=== PATIENT | male | born 1975 | race Caucasian/White ===

== ENCOUNTER 2018-07-24 18:51 | Emergency (ER) | payer SELFPAY ==
[~2018-07-24] VITALS: Ht 190.5 cm; Wt 108.9 kg
[~2018-07-24 18:51] MED LIST: BENZ100C PO; OXYM15MI4 NS; VENTOLIN HFA18 GM INH
[2018-07-24] MEDS ORDERED: MORPHINE SULFATE 10 MG/ML VIAL. IM ONE (19:30)
[2018-07-24] MEDS ORDERED: diazePAM 5 MG TABLET PO ONE (19:30)
[2018-07-24 20:00] VITALS: BP 145/85
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
[2018-07-24] MEDS ORDERED: HYDR-971 PO (20:02)
[2018-07-24] MEDS ORDERED: DIAZ5TAB PO (20:02)
[2018-07-24] MEDS ORDERED: IBUP-1060 PO (20:02)
== END 2018-07-24 20:21 | disposition home or self-care (01) ==
LOC: ER 18:51
DX: G89.29 Other chronic pain (principal); M54.5 Low back pain; K21.9 Gastro-esophageal reflux disease without esophagitis; I10 Essential (primary) hypertension
CPT/HCPCS: 96372; 99283; J2270

== ENCOUNTER 2018-11-20 16:25 | Emergency (ER) | payer SELFPAY ==
[~2018-11-20] VITALS: Ht 190.5 cm; Wt 108.9 kg
[~2018-11-20 16:25] MED LIST changes: +DIAZ5TAB PO; +HYDR-3164 PO; +IBUP-1060 PO
[2018-11-20 16:45] VITALS: BP 161/88
[2018-11-20] MEDS ORDERED: IV NORMAL SALINE 1000ML BAG 1,000 ML IV ONE (17:00)
[2018-11-20] MEDS ORDERED: predniSONE 10 MG TABLET PO ONE (17:00)
--- NOTE | 2018-11-20 17:06 | PHYS DOC ---
Past Medical History Past Medical History: No Pertinent History, Bronchitis, GERD Past Surgical History: No Surgical History Alcohol Use: None Drug Use: None Adult General Chief Complaint Chief Complaint: DIZZY/LIGHT HEADED HPI HPI 43-year-old male presents to ER via POV for complaints of 2 episodes where he "blacked out" while lying on the couch and during a coughing episode. Patient reports he woke up on the couch denies falling and striking his head or having any head, neck, or back pain. Patient denies incontinence of bowel or bladder. Patient reports for the past month he has had cold-like symptoms with sinus congestion and drainage, low-grade fever, wheezing, and productive cough. Patient reports he has had generalized fatigue denies any chest pain or shortness of air. Patient reports he has had decreased appetite denies any nausea or vomiting. Patient reports he has had no urinary symptoms and has had regular bowel movements. Reports daughter has had recent pneumonia diagnosis and at bedside has cough as well. Patient is a daily smoker. Patient denies any recent travel. Orthostatic vital signs obtained by this provider during initial exam: Supine blood pressure 162/87 heart rate 73 Sitting blood pressure 154/92 heart rate 90 Standing blood pressure 139/87 heart rate 89 Review of Systems Review of Systems Constitutional: Reports generalized fatigue with low grade temp. Eyes: Denies change in visual acuity, redness, or eye pain [] HENT: Denies sore throat. Reports sinus congestion and drainage Respiratory: Denies shortness of breath. Reports productive cough and wheezing Cardiovascular: Denies chest pain or palpitations GI: Denies abdominal pain, nausea, vomiting, bloody stools or diarrhea [] : Denies dysuria or hematuria [] Musculoskeletal: Denies back/neck pain or joint pain [] Integument: Denies rash, swelling or skin lesions [] Neurologic: Denies headache, focal weakness or sensory changes. Reports 2 episodes of "blacking out" All other systems were reviewed and found to be within normal limits, except as documented in this note. Current Medications Current Medications Current Medications Medications (Trade) Dose Ordered Sig/Coco Start Time Stop Time Status Last Admin Dose Admin Albuterol/ Ipratropium (Duoneb) 3 ml 1X ONCE 11/20/18 18:45 11/20/18 18:46 DC 11/20/18 18:45 3 ML Prednisone (Prednisone) 50 mg 1X ONCE 11/20/18 17:00 18 17:01 DC 11/20/18 17:25 50 MG Sodium Chloride 1,000 ml @ 1,000 mls/hr 1X ONCE 11/20/18 17:00 18 17:59 DC 11/20/18 17:25 1,000 MLS/HR Allergies Allergies Allergies Coded Allergies Type Severity Reaction Last Updated Verified No Known Drug Allergies 06/21/16 No Physical Exam Physical Exam Constitutional: Well developed, well nourished, no acute distress, non-toxic appearance. There speech HENT: Normocephalic, atraumatic, bilateral ears normal, oropharynx moist- no pharyngeal swelling or erythema, no oral exudates, nose normal. [] Eyes: 3mm PERRLA, EOMI- no pain with eye movement, no nystagmus, conjunctiva normal, no discharge. [] Neck: Normal range of motion, no tenderness, supple, no stridor. [] Cardiovascular: Heart rate regular rhythm, no murmur [] Lungs & Thorax: Diminished lung sounds throughout all lung chang. Slight expiratory wheezing right upper lobe. Less air movement in bases. Respirations equal and nonlabored. Patient speaking in full sentences Abdomen: Bowel sounds normal, soft, no tenderness Skin: Warm, dry, no erythema, no rash. [] Back: No tenderness, full range of motion Extremities: No tenderness, no cyanosis, no clubbing, ROM intact, no edema. [] Neurologic: Alert and oriented X 3, normal motor function, normal sensory function, no focal deficits noted. [] Psychologic: Affect normal, judgement normal, mood normal. [] Current Patient Data Vital Signs Vital Signs Date Time Temp Pulse Resp B/P (MAP) Pulse Ox O2 Delivery O2 Flow Rate FiO2 11/20/18 19:00 97 Room Air 11/20/18 16:45 98.7 74 16 161/88 (112) 98.7 Lab Values Laboratory Tests Test 11/20/18 17:25 White Blood Count 7.1 x10^3/uL (4.0-11.0) Red Blood Count 5.09 x10^6/uL (4.30-5.70) Hemoglobin 16.8 g/dL (13.0-17.5) Hematocrit 47.5 % (39.0-53.0) Mean Corpuscular Volume 93 fL (79-100) Mean Corpuscular Hemoglobin 33 pg (25-35) Mean Corpuscular Hemoglobin Concent 35 g/dL (31-37) Red Cell Distribution Width 13.1 % (11.5-14.5) Platelet Count 283 x10^3/uL (140-400) Neutrophils (%) (Auto) 58 % (31-73) Lymphocytes (%) (Auto) 27 % (24-48) Monocytes (%) (Auto) 10 % (0-9) H Eosinophils (%) (Auto) 5 % (0-3) H Basophils (%) (Auto) 1 % (0-3) Neutrophils # (Auto) 4.2 x10^3uL (1.8-7.7) Lymphocytes # (Auto) 1.9 x10^3/uL (1.0-4.8) Monocytes # (Auto) 0.7 x10^3/uL (0.0-1.1) Eosinophils # (Auto) 0.4 x10^3/uL (0.0-0.7) Basophils # (Auto) 0.0 x10^3/uL (0.0-0.2) Sodium Level 141 mmol/L (136-145) Potassium Level 4.1 mmol/L (3.5-5.1) Chloride Level 105 mmol/L (98-107) Carbon Dioxide Level 28 mmol/L (21-32) Anion Gap 8 (6-14) Blood Urea Nitrogen 15 mg/dL (8-26) Creatinine 0.9 mg/dL (0.7-1.3) Estimated GFR (Cockcroft-Gault) 93.0 Glucose Level 97 mg/dL (70-99) Calcium Level 8.9 mg/dL (8.5-10.1) Magnesium Level 2.2 mg/dL (1.8-2.4) Troponin I Quantitative < 0.017 ng/mL (0.000-0.055) Laboratory Tests 11/20/18 17:25 Laboratory Tests 11/20/18 17:25 EKG EKG EKG obtained 11/20/18 at [address] Schaefer Rate 72 Radiology/Procedures Radiology/Procedures PROCEDURE: CHEST PA & LATERAL PA and lateral chest radiographs 11/20/2018 CLINICAL HISTORY: Shortness of breath. Syncope. Cough. PA and lateral digital radiographs of the chest were obtained. Comparison study is dated 08/10/2016. The cardiac and mediastinal silhouettes are within normal limits in size and configuration. No acute pulmonary infiltrate is seen. A small calcified granuloma is seen involving the right upper lobe. No pneumothorax or pleural effusion is seen. Mild degenerative changes are seen involving the thoracic spine. IMPRESSION: No acute abnormality is seen. Electronically signed by: Frederick Haji MD (11/20/2018 5:18 PM) [facility] DICTATED and SIGNED BY: FREDERICK HAJI MD DATE: 11/20/18 1716 Course & Med Decision Making Course & Med Decision Making Pertinent Labs and Imaging studies reviewed. (See chart for details) 1805: On reevaluation patient reports following IV fluids and dose of prednisone his symptoms have improved. Patient remains alert and oriented 3 and has had no change in mental status- denies feeling dizzy/light-headed. Patient states he feels better than he did at time of arrival to ER. Patient is waiting to have DuoNeb treatment and then will reevaluate. Test results were discussed EKG with no acute ST elevation or STEMI and troponin <0.017; labs were unremarkable and chest x-ray reporting no acute findings. 1905: After DuoNeb treatment patient has increased air movement throughout all lung chang. Right upper expiratory wheezing has subsided. Patient is speaking in full sentences with equal nonlabored respirations. He reports he is feeling much better than he did at time of arrival to ER. Patient is nontoxic in appearance. Vital signs are stable. Patient has had no episodes of dizziness or syncope while in the ER. All test results were again discussed with patient. Admission was offered for further monitoring and care- patient with improved symptoms is comfortable with home discharge and is not wanting admission at this time. Education provided on signs and symptoms to return to ER for. Patient encouraged to increase fluid intake. Smoking cessation was discussed. Will provide patient with wait and see prescription for doxycycline with education that if his symptoms worsen in the next 48 hours he should start the prescription. Discharge instructions were discussed. Patient to use over-the- counter ibuprofen and or Tylenol as needed. At time of discharge discussion patient was nontoxic in appearance and in no visible distress. Dragon Disclaimer Dragon Disclaimer This electronic medical record was generated, in whole or in part, using a voice recognition dictation system. Departure Departure Impression: Primary Impression: Upper respiratory infection Additional Impression: Orthostatic syncope Disposition: 01 HOME, SELF-CARE Condition: STABLE Referrals: NO PCP (PCP) Patient Instructions: Dehydration, Adult, Smoking Cessation, Syncope, Upper Respiratory Infection, Adult Additional Instructions: Drink plenty of water. Avoid smoking. If symptoms worsen in the next 48 hours you can start taking the antibiotic prescription as prescribed. Follow-up with primary care physician in next 3-5 days if symptoms persist or with concerns. Scripts Albuterol Sulfate (Proair Hfa) 8.5 Gm Hfa.aer.ad 1 PUFF INH PRN Q6HRS PRN for SHORTNESS OF BREATH, #1 INHALER 0 Refills Prov: KRISTIAN SAL APRN 11/20/18 Doxycycline Monohydrate (DOXYCYCLINE MONOHYDRATE) 100 Mg Capsule 1 CAP PO BID, #14 CAP 0 Refills Prov: KRISTIAN SAL APRN 11/20/18 Prednisone (PREDNISONE) 50 Mg Tablet 50 MG PO DAILY, #4 TAB 0 Refills Start on 11/21/18 Prov: KRISTIAN SAL APRN 11/20/18 Problem Qualifiers KRISTIAN SAL APRN Nov 20, 2018 17:06
--- NOTE | 2018-11-20 17:22 | RAD ---
PA and lateral chest radiographs 11/20/2018 CLINICAL HISTORY: Shortness of breath. Syncope. Cough. PA and lateral digital radiographs of the chest were obtained. Comparison study is dated 08/10/2016. The cardiac and mediastinal silhouettes are within normal limits in size and configuration. No acute pulmonary infiltrate is seen. A small calcified granuloma is seen involving the right upper lobe. No pneumothorax or pleural effusion is seen. Mild degenerative changes are seen involving the thoracic spine. IMPRESSION: No acute abnormality is seen. Electronically signed by: Frederick Haji MD (11/20/2018 5:18 PM) [facility]
[2018-11-20 17:35] LABS: BASO % 1 % (0-3); EOS # 0.4 x10^3/uL (0.0-0.7); EOS % 5 % (0-3); HEMATOCRIT 47.5 % (39.0-53.0); HEMOGLOBIN 16.8 g/dL (13.0-17.5); LYMPH # 1.9 x10^3/uL (1.0-4.8); LYMPH % 27 % (24-48); MEAN CORPUSCULAR HEMOGLOBIN 33 pg (25-35); MEAN CORPUSCULAR HGB CONC 35 g/dL (31-37); MEAN CORPUSCULAR VOLUME 93 fL (79-100); MONO # 0.7 x10^3/uL (0.0-1.1); MONO % 10 % (0-9); NEUT # 4.2 x10^3uL (1.8-7.7); NEUT % 58 % (31-73); PLATELET COUNT 283 x10^3/uL (140-400); RED BLOOD COUNT 5.09 x10^6/uL (4.30-5.70); RED CELL DISTRIBUTION WIDTH 13.1 % (11.5-14.5); WHITE BLOOD COUNT 7.1 x10^3/uL (4.0-11.0)
[2018-11-20 17:43] LABS: CALCIUM 8.9 mg/dL (8.5-10.1); CREATININE 0.9 mg/dL (0.7-1.3); MAGNESIUM 2.2 mg/dL (1.8-2.4); POTASSIUM 4.1 mmol/L (3.5-5.1)
--- NOTE | 2018-11-20 17:56 | EKG ---
[facility] [address] [place] [address] Test Date: 2018-11-20 Test Time: 16:40:57 Pat Name: BRENNEN PHAN Department: Room: Gender: M Employee Benefits Specialist: : 1975 Requested By: KRISTIAN SAL Order Number: [id number] Reading MD: Obed Francois Measurements Intervals [place] Rate: 72 P: [place]: QRS: 37 QRSD: 82 T: 54 QT: 356 QTc: 391 Interpretive Statements SINUS RHYTHM NONSPECIFIC ST-T WAVE CHANGES. Electronically Signed On 11-28-2018 10:49:29 [employer] by Obed Francois
[2018-11-20] MEDS ORDERED: IPRATRPIUM/ALBUTEROL 0.5/2.5MG 3 ML NEBU. NEB ONE (18:45)
[2018-11-20] MEDS ORDERED: ALBU2.5V8 INH (19:22)
[2018-11-20] MEDS ORDERED: PRED50TA PO (19:22)
[2018-11-20] MEDS ORDERED: DOXY100C14 PO (19:22)
== END 2018-11-20 19:29 | disposition home or self-care (01) ==
LOC: ER 16:25
DX: J06.9 Acute upper respiratory infection, unspecified (principal); I95.1 Orthostatic hypotension; F17.200 Nicotine dependence, unspecified, uncomplicated
CPT/HCPCS: 36415; 71046; 80048; 83735; 84484; 85025; 93005; 94640; 96360; 99284; J7030; J7512; J7620

== ENCOUNTER 2019-01-27 20:42 | Emergency (ER) | payer SELFPAY ==
[~2019-01-27] VITALS: Ht 190.5 cm; Wt 108.9 kg
[~2019-01-27 20:42] MED LIST changes: +ALBU2.5V8 INH; +DOXY100C14 PO; +PRED50TA PO
[2019-01-27 21:15] LABS: FECAL OB PT POSITIVE (NEG)
--- NOTE | 2019-01-27 21:17 | PHYS DOC ---
Past Medical History Past Medical History: No Pertinent History, Bronchitis, GERD Past Surgical History: No Surgical History Additional Information: 2 PACKS/DAY Alcohol Use: None Drug Use: None Adult General Chief Complaint Chief Complaint: RECTAL BLEED HPI HPI Patient is a 43 year old male with history of acid reflex who presents to the ED today complaining of rectal bleeding. Patient states yesterday he noted he had hemorrhoid, patient states he pushed the hemorrhoid back to his rectum, he states since then he has had bright red blood when he wipes himself after bowel movements. Patient denies any previous history of hemorrhoids, denies any previous history of constipation. Review of Systems Review of Systems Constitutional: Denies fever or chills [] Eyes: Denies change in visual acuity, redness, or eye pain [] HENT: Denies nasal congestion or sore throat [] Respiratory: Denies cough or shortness of breath [] Cardiovascular: No additional information not addressed in HPI [] GI: Reports rectal bleeding with hemorrhoids. Denies abdominal pain, nausea, vomiting, bloody stools or diarrhea [] : Denies dysuria or hematuria [] Musculoskeletal: Denies back pain or joint pain [] Integument: Denies rash or skin lesions [] Neurologic: Denies headache, focal weakness or sensory changes [] All other systems were reviewed and found to be within normal limits, except as documented in this note. Current Medications Current Medications Current Medications Medications (Trade) Dose Ordered Sig/Coco Start Time Stop Time Status Last Admin Dose Admin Famotidine (Pepcid Vial) 20 mg 1X ONCE 01/27/19 21:30 01/27/19 21:31 DC 01/27/19 21:30 20 MG Info (CONTRAST GIVEN -- Rx MONITORING) 1 each PRN DAILY PRN 01/27/19 21:45 01/29/19 21:44 Iohexol (Omnipaque 300 Mg/ml) 75 ml 1X ONCE 01/27/19 22:00 01/27/19 22:01 DC 01/27/19 22: 75 ML Allergies Allergies Allergies Coded Allergies Type Severity Reaction Last Updated Verified No Known Drug Allergies 06/21/16 No Physical Exam Physical Exam Constitutional: Well developed, well nourished, no acute distress, non-toxic appearance. [] HENT: Normocephalic, atraumatic, bilateral external ears normal, oropharynx moist, no oral exudates, nose normal. [] Eyes: PERRLA, EOMI, conjunctiva normal, no discharge. [] Neck: Normal range of motion, no tenderness, supple, no stridor. [] Cardiovascular:Heart rate regular rhythm, no murmur [] Lungs & Thorax: Bilateral breath sounds clear to auscultation [] Abdomen: Bowel sounds normal, soft, no tenderness, no masses, no pulsatile masses. Rectal exam External rectum with a peanut sideways hemorrhoid extending into the internal rectum. This blood around the rectal area, no stool palpable. This hemorrhoid is nonthrombosed. Skin: Warm, dry, no erythema, no rash. [] Back: No tenderness, no CVA tenderness. [] Extremities: No tenderness, no cyanosis, no clubbing, ROM intact, no edema. [] Neurologic: Alert and oriented X 3, normal motor function, normal sensory function, no focal deficits noted. [] Psychologic: Affect normal, judgement normal, mood normal. [] Current Patient Data Vital Signs Vital Signs Date Time Temp Pulse Resp B/P (MAP) Pulse Ox O2 Delivery O2 Flow Rate FiO2 01/27/19 21:50 68 144/91 (108) 97 Room Air 01/27/19 20:50 98.5 18 98.5 Lab Values Laboratory Tests Test 01/27/19 21:05 01/27/19 21:15 01/27/19 21:17 Stool Occult Blood Positive (NEG) Urine Collection Type Unknown Urine Color Yellow Urine Clarity Cloudy Urine pH 6.5 Urine Specific [place] 1.025 Urine Protein Negative mg/dL (NEG-TRACE) Urine Glucose (UA) Negative mg/dL (NEG) Urine Ketones (Stick) Negative mg/dL (NEG) Urine Blood Negative (NEG) Urine Nitrite Negative (NEG) Urine Bilirubin Negative (NEG) Urine Urobilinogen Dipstick 1.0 mg/dL (0.2 mg/dL) Urine Leukocyte Esterase Negative (NEG) Urine RBC Occ /HPF (0-2) Urine WBC Occ /HPF (0-4) Urine Bacteria 0 /HPF (0-FEW) Urine Mucus Marked /LPF Urine Opiates Screen Neg (NEG) Urine Methadone Screen Neg (NEG) Urine Barbiturates Neg (NEG) Urine Phencyclidine Screen Neg (NEG) Urine Amphetamine/Methamphetamine Neg (NEG) Urine Benzodiazepines Screen Neg (NEG) Urine Cocaine Screen Neg (NEG) Urine Cannabinoids Screen Neg (NEG) Urine Ethyl Alcohol Neg (NEG) White Blood Count 6.9 x10^3/uL (4.0-11.0) Red Blood Count 4.94 x10^6/uL (4.30-5.70) Hemoglobin 15.9 g/dL (13.0-17.5) Hematocrit 46.8 % (39.0-53.0) Mean Corpuscular Volume 95 fL (79-100) Mean Corpuscular Hemoglobin 32 pg (25-35) Mean Corpuscular Hemoglobin Concent 34 g/dL (31-37) Red Cell Distribution Width 13.1 % (11.5-14.5) Platelet Count 277 x10^3/uL (140-400) Neutrophils (%) (Auto) 46 % (31-73) Lymphocytes (%) (Auto) 37 % (24-48) Monocytes (%) (Auto) 8 % (0-9) Eosinophils (%) (Auto) 9 % (0-3) H Basophils (%) (Auto) 1 % (0-3) Neutrophils # (Auto) 3.2 x10^3uL (1.8-7.7) Lymphocytes # (Auto) 2.5 x10^3/uL (1.0-4.8) Monocytes # (Auto) 0.5 x10^3/uL (0.0-1.1) Eosinophils # (Auto) 0.6 x10^3/uL (0.0-0.7) Basophils # (Auto) 0.0 x10^3/uL (0.0-0.2) Sodium Level 140 mmol/L (136-145) Potassium Level 4.1 mmol/L (3.5-5.1) Chloride Level 104 mmol/L (98-107) Carbon Dioxide Level 30 mmol/L (21-32) Anion Gap 6 (6-14) Blood Urea Nitrogen 15 mg/dL (8-26) Creatinine 0.8 mg/dL (0.7-1.3) Estimated GFR (Cockcroft-Gault) 106.5 BUN/Creatinine Ratio 19 (6-20) Glucose Level 106 mg/dL (70-99) H Calcium Level 8.7 mg/dL (8.5-10.1) Total Bilirubin 0.4 mg/dL (0.2-1.0) Aspartate Amino Transferase (AST) 18 U/L (15-37) Alanine Aminotransferase (ALT) 34 U/L (16-63) Alkaline Phosphatase 92 U/L (46-116) Total Protein 6.8 g/dL (6.4-8.2) Albumin 3.5 g/dL (3.4-5.0) Albumin/Globulin Ratio 1.1 (1.0-1.7) Lipase 110 U/L (73-393) Ethyl Alcohol Level < 10 mg/dL (0-10) Laboratory Tests 01/27/19 21:17 Laboratory Tests 01/27/19 21:17 EKG EKG [] Radiology/Procedures Radiology/Procedures []PROCEDURE: CT ABD PELV W/ IV CONTRST ONLY CT abdomen and pelvis with contrast Clinical Indication: Rectal bleeding, hemorrhoids COMPARISON: None TECHNIQUE: Multiple contiguous axial images were obtained throughout the abdomen and pelvis with the use of IV contrast. Axial images were reformatted into coronal and sagittal planes. 75 mL Omni 300 was administered. Abdomen findings: Calcified left hilar lymph node related to remote granulomatous disease. The visualized lung bases are clear. The liver, spleen, pancreas, and adrenal glands are unremarkable. Contracted gallbladder. No pericholecystic fluid or radiopaque gallstone. The kidneys are unremarkable. There is no significant mesenteric or retroperitoneal adenopathy identified. There is no evidence of free intraperitoneal fluid or pneumoperitoneum. Portions of the large bowel are decompressed which limits evaluation for wall thickening. The visualized portions of the bowel are otherwise grossly unremarkable. Normal appendix. Pelvis findings: The bladder is underdistended limiting evaluation. There is no significant pelvic ascites. No significant iliac or inguinal adenopathy is identified. No acute osseous abnormality. Trace anterolisthesis of L5 on S1 with bilateral L5 pars defects. Mild multilevel degenerative changes of the visualized spine. IMPRESSION: No acute intra-abdominal or intrapelvic process. Electronically signed by: Denilson Freire MD (01/27/2019 11:14 PM) [facility] DICTATED and SIGNED BY: DENILSON FREIRE MD DATE: 01/27/19 7465 Course & Med Decision Making Course & Med Decision Making Pertinent Labs and Imaging studies reviewed. (See chart for details) This is a 43-year-old male patient presenting to the ED today complaining of rectal bleeding that began yesterday. Patient states the bleeding began as a hemorrhoid. On physical exam he does have an external to internal hemorrhoid. The hemorrhoid is nonthrombosed. Positive Hemoccult. CBC with a normal WBC, normal hemoglobin and hematocrit, CMP with no acute findings. CT of the abdomen and pelvic is negative for any acute findings. Talked to patient about management of constipation including diet with increased fiber intake as well as increasing water intake. Discharged with Anusol, recommended sitz baths, recommended MiraLAX. Follow up with GI or Gen. surgery in 1-2 weeks. Dragon Disclaimer Dragon Disclaimer This electronic medical record was generated, in whole or in part, using a voice recognition dictation system. Departure Departure Impression: Primary Impression: Hemorrhoids Disposition: HOME, SELF-CARE Condition: STABLE Referrals: NO PCP (PCP) JOLEEN SMART MD follow up in 1-2 weeks Patient Instructions: Hemorrhoids, [id number] Additional Instructions: You were evaluated in the emergency room for hemorrhoids. We highly recommend you increase your dietary fiber intake, increase your water intake, try to exercise. Take MiraLAX every day which will prevent constipation and reduce incidence of hemorrhoids. Use the prescribed medications for hemorrhoids. Perform sitz baths daily for the current hemorrhoids. Scripts Hydrocortisone Acetate (ANUSOL-HC) 25 Mg Supp.rect 1 SUPP RC BID, #14 SUPP Prov: PATRICIA SMALL APRN 01/27/19 Polyethylene Glycol 3350 (MIRALAX) 17 Gm Powd.pack 1 PACKET PO DAILY, #30 PACKET 3 Refills Prov: PATRICIA SMALL APRN 01/27/19 Problem Qualifiers Primary Impression: Hemorrhoids Hemorrhoid type: unspecified Qualified Codes: K64.9 - Unspecified hemorrhoids PATRICIA SMALL APRN Jan 27, 2019 21:17
[2019-01-27 21:23] LABS: BASO % 1 % (0-3); EOS # 0.6 x10^3/uL (0.0-0.7); EOS % 9 % (0-3); HEMATOCRIT 46.8 % (39.0-53.0); HEMOGLOBIN 15.9 g/dL (13.0-17.5); LYMPH # 2.5 x10^3/uL (1.0-4.8); LYMPH % 37 % (24-48); MEAN CORPUSCULAR HEMOGLOBIN 32 pg (25-35); MEAN CORPUSCULAR HGB CONC 34 g/dL (31-37); MEAN CORPUSCULAR VOLUME 95 fL (79-100); MONO # 0.5 x10^3/uL (0.0-1.1); MONO % 8 % (0-9); NEUT # 3.2 x10^3uL (1.8-7.7); NEUT % 46 % (31-73); PLATELET COUNT 277 x10^3/uL (140-400); RED BLOOD COUNT 4.94 x10^6/uL (4.30-5.70); RED CELL DISTRIBUTION WIDTH 13.1 % (11.5-14.5); WHITE BLOOD COUNT 6.9 x10^3/uL (4.0-11.0)
[2019-01-27 21:29] LABS: BILIRUBIN,URINE NEGATIVE (NEG); CLARITY,URINE CLOUDY; COLOR,URINE YELLOW; NITRITE,URINE NEGATIVE (NEG); PH,URINE 6.5; PROTEIN,URINE NEGATIVE (NEG-TRACE)
[2019-01-27] MEDS ORDERED: FAMOTIDINE 20 MG/2 ML VIAL IVP ONE (21:30)
[2019-01-27 21:35] LABS: CALCIUM 8.7 mg/dL (8.5-10.1); CREATININE 0.8 mg/dL (0.7-1.3); GFR 106.5; POTASSIUM 4.1 mmol/L (3.5-5.1)
[2019-01-27 21:37] LABS: ALBUMIN 3.5 g/dL (3.4-5.0); ALBUMIN/GLOBULIN RATIO 1.1 (1.0-1.7); TOTAL BILIRUBIN 0.4 mg/dL (0.2-1.0); TOTAL PROTEIN 6.8 g/dL (6.4-8.2)
[2019-01-27 21:38] LABS: AMPHETAMINE/METHAMPHETAMINE NEG (NEG); BARBITURATES NEG (NEG); BENZODIAZEPINES NEG (NEG); CANNABINOIDS NEG (NEG); COCAINE NEG (NEG); METHADONE NEG (NEG); OPIATES NEG (NEG); PHENCYCLIDINE NEG (NEG)
[2019-01-27 21:41] LABS: BACTERIA,URINE 0 /HPF (0-FEW); RBC,URINE OCC /HPF (0-2); WBC,URINE OCC /HPF (0-4)
[2019-01-27] MEDS ORDERED: CONTRAST GIVEN. MC PRN (21:45)
[2019-01-27 21:50] VITALS: BP 144/91
[2019-01-27] MEDS ORDERED: IOHEXOL 300 MG/ML 100ML VIAL. IV ONE (22:00)
--- NOTE | 2019-01-27 23:17 | RAD ---
CT abdomen and pelvis with contrast Clinical Indication: Rectal bleeding, hemorrhoids COMPARISON: None TECHNIQUE: Multiple contiguous axial images were obtained throughout the abdomen and pelvis with the use of IV contrast. Axial images were reformatted into coronal and sagittal planes. 75 mL Omni 300 was administered. Abdomen findings: Calcified left hilar lymph node related to remote granulomatous disease. The visualized lung bases are clear. The liver, spleen, pancreas, and adrenal glands are unremarkable. Contracted gallbladder. No pericholecystic fluid or radiopaque gallstone. The kidneys are unremarkable. There is no significant mesenteric or retroperitoneal adenopathy identified. There is no evidence of free intraperitoneal fluid or pneumoperitoneum. Portions of the large bowel are decompressed which limits evaluation for wall thickening. The visualized portions of the bowel are otherwise grossly unremarkable. Normal appendix. Pelvis findings: The bladder is underdistended limiting evaluation. There is no significant pelvic ascites. No significant iliac or inguinal adenopathy is identified. No acute osseous abnormality. Trace anterolisthesis of L5 on S1 with bilateral L5 pars defects. Mild multilevel degenerative changes of the visualized spine. IMPRESSION: No acute intra-abdominal or intrapelvic process. Electronically signed by: Denilson Marx MD (01/27/2019 11:14 PM) [id number]
[2019-01-27] MEDS ORDERED: POLY17PO29 PO (23:23)
[2019-01-27] MEDS ORDERED: HYDR25SU18 RC (23:23)
== END 2019-01-27 23:31 | disposition home or self-care (01) ==
LOC: ER 20:42
DX: K64.8 Other hemorrhoids (principal); K62.5 Hemorrhage of anus and rectum; K21.9 Gastro-esophageal reflux disease without esophagitis; F17.200 Nicotine dependence, unspecified, uncomplicated
CPT/HCPCS: 36415; 74177; 80053; 80307; 81001; 82274; 83690; 85025; 96374; 99284; G0480; J3490; Q9967

== ENCOUNTER 2020-02-04 13:45 | Emergency (ER) | payer SELFPAY ==
[~2020-02-04] VITALS: Ht 190.5 cm; Wt 63.3 kg
[~2020-02-04 13:45] MED LIST changes: +HYDR25SU18 RC; +POLY17PO29 PO
[2020-02-04 15:42] VITALS: BP 132/79
--- NOTE | 2020-02-04 15:52 | PHYS DOC ---
Past Medical History Past Medical History: No Pertinent History, Bronchitis, GERD Past Surgical History: No Surgical History Smoking Status: Current Every Day Smoker Alcohol Use: None Drug Use: None Adult General Chief Complaint Chief Complaint: FLU SYMPTOM HPI HPI Patient is a 44 year old male who presents with fever, body aches. Patient reports for the last day, he has had a fever at home, reports he has not checked his temperature, however he has taken some Motrin for it. States he is had some chills. States he has had body aches. States he had been at work at [employer] yesterday, does not think he has been anybody who has been ill, however he is not sure. Denies nausea. Denies vomiting. States he has had a nonproductive cough. States headache. Had taken ibuprofen approximately 2 hours prior to coming in. States he did not receive his flu vaccine, as he never does Review of Systems Review of Systems Constitutional: Reports fever and chills for the last day, reports body aches] Eyes: Denies change in visual acuity, redness, or eye pain [] HENT: Denies nasal congestion states some sore throat due to coughing Respiratory: Reports cough, denies shortness of breath Cardiovascular: No additional information not addressed in HPI [] GI: Denies abdominal pain, nausea, vomiting, bloody stools or diarrhea [] : Denies dysuria or hematuria [] Musculoskeletal: Denies back pain or joint pain [] Integument: Denies rash or skin lesions [] Neurologic: Denies focal weakness or sensory changes reports headache [] Endocrine: Denies polyuria or polydipsia [] All other systems were reviewed and found to be within normal limits, except as documented in this note. Current Medications Current Medications Current Medications Medications (Trade) Dose Ordered Sig/[facility] Start Time Stop Time Status Last Admin Dose Admin Albuterol/ Ipratropium (Duoneb) 3 ml 1X ONCE 02/04/20 16:00 02/04/20 16:01 DC 02/04/20 16:08 3 ML Allergies Allergies Allergies Coded Allergies Type Severity Reaction Last Updated Verified No Known Drug Allergies 06/21/16 No Physical Exam Physical Exam Constitutional: Well developed, well nourished, no acute distress, non-toxic appearance. Appears uncomfortable [] HENT: Normocephalic, atraumatic, bilateral external ears normal, oropharynx moist, no oral exudates, nose normal. Tonsils 0+ [] Eyes: PERRLA, EOMI, conjunctiva normal, no discharge. [] Neck: Normal range of motion, no tenderness, supple, no stridor. [] Cardiovascular:Heart rate regular rhythm, no murmur [] Lungs & Thorax: Faint expiratory wheezing noted throughout chest [] Abdomen: Bowel sounds normal, soft, no tenderness, no masses, no pulsatile masses. [] Skin: Warm, dry, no erythema, no rash. [] Back: No tenderness, no CVA tenderness. [] Extremities: No tenderness, no cyanosis, no clubbing, ROM intact, no edema. [] Neurologic: Alert and oriented X 3, normal motor function, normal sensory function, no focal deficits noted. [] Psychologic: Affect normal, judgement normal, mood normal. [] Current Patient Data Vital Signs Vital Signs Date Time Temp Pulse Resp B/P (MAP) Pulse Ox O2 Delivery O2 Flow Rate FiO2 02/04/20 16:08 96 Room Air 02/04/20 15:42 99.6 98 18 132/79 (96) 99.6 Lab Values Laboratory Tests Test 02/04/20 15:50 Influenza Type A Antigen Positive (NEGATIVE) Influenza Type B Antigen Negative (NEGATIVE) EKG EKG [] Radiology/Procedures Radiology/Procedures []HISTORY: Cough. Shortness of air. COMPARISON: 11/20/2018 FINDINGS: A single view of the chest is obtained. There is no infiltrate, pleural effusion or pneumothorax. The heart is normal in size. There are few calcified granulomas. IMPRESSION: No acute pulmonary finding. Electronically signed by: Deedee Betancur MD (02/04/2020 4:08 PM) [id number] DICTATED and SIGNED BY: DEEDEE BETANCUR MD Course & Med Decision Making Course & Med Decision Making Pertinent Labs and Imaging studies reviewed. (See chart for details) Discussed findings with patient, with no signs of pneumonia, does have influenza A. Will provide Tamiflu prescription. Advised patient to rest, hydrate, follow-up with primary care provider as needed. Importance of hydration emphasized. [] Dragon Disclaimer Dragon Disclaimer This electronic medical record was generated, in whole or in part, using a voice recognition dictation system. Departure Departure Impression: Primary Impression: Influenza A Disposition: 01 HOME, SELF-CARE Condition: STABLE Referrals: NO PCP (PCP) Patient Instructions: Influenza A (H1N1) Additional Instructions: As we discussed, take the Tamiflu for the entire duration. Make sure you are drinking plenty of fluids. Rest. Stay home. These are the main treatment for influenza. You are likely to continue to feel ill for the next 4 to 5 days. Some people have been ill for as long as 14 days with similar symptoms during influenza, however after taking, Tamiflu generally the duration of illnesses muc h shorter, closer to the 4 to 5-day range. Scripts Oseltamivir Phosphate (TAMIFLU) 75 Mg Capsule 75 MG PO BID for FLU for 5 Days, #10 TAB 0 Refills Prov: CATHY DELEON APRN 02/04/20 CATHY DELEON APRN Feb 04, 2020 15:52
[2020-02-04] MEDS ORDERED: IPRATRPIUM/ALBUTEROL 0.5/2.5MG 3 ML NEBU. NEB ONE (16:00)
--- NOTE | 2020-02-04 16:12 | RAD ---
EXAM: Chest, single view. HISTORY: Cough. Shortness of air. COMPARISON: 11/20/2018 FINDINGS: A single view of the chest is obtained. There is no infiltrate, pleural effusion or pneumothorax. The heart is normal in size. There are few calcified granulomas. IMPRESSION: No acute pulmonary finding. Electronically signed by: Deedee Betancur MD (02/04/2020 4:08 PM) [id number]
[2020-02-04 16:18] LABS: INFLUENZA A PATIENT POSITIVE (NEGATIVE); INFLUENZA B PATIENT NEGATIVE (NEGATIVE)
[2020-02-04] MEDS ORDERED: OSEL75CA PO (16:34)
== END 2020-02-04 16:42 | disposition home or self-care (01) ==
LOC: ER 13:45
DX: J10.1 Influenza due to other identified influenza virus with other respiratory manifestations (principal); K21.9 Gastro-esophageal reflux disease without esophagitis; F17.200 Nicotine dependence, unspecified, uncomplicated
CPT/HCPCS: 71045; 87804; 94640; 99284-25